=== PATIENT | male | born 1945 | race Caucasian/White ===

== ENCOUNTER 2016-11-09 03:00 | Emergency (ER) | payer OTHER ==
--- NOTE | ~2016-11-09 | US113 ---
[facility] A Service of [facility] RADIOLOGY TEXT RESULTS PATIENT: BASIL MATTHEW LOCATION: [facility] : 43 UNIT #: [id number] AGE: [address]: Miguel Wiseman MD SEX: M ORDER DR: [id number] [facility] [address] [place], [place] [address] [id number] E MR#: [id number] Acc #: [id number] NAME: BASIL MATTHEW : 1945 SEX: M STUDY DATE/TIME: 11/09/2016 2:24 UNIT: [facility] ROOM: STUDY DESCRIPTION: US Scrotal Duplex Complete Attending Physician: Miguel Wiseman M.D. Ordering Physician: Miguel Wiseman M.D. Primary Care Physician: Primary Care Physician No MEDICAL IMAGING REPORT This report is preliminary unless electronic signature is present EXAM Bilateral scrotal ultrasound with Doppler imaging 11/09/2016 HISTORY 71-year-old male with scrotal pain for 4 days. No trauma. COMPARISON None. FINDINGS The right testicle measures 2.4 x 2.0 x 4.1 cm. The left testicle measures 3.0 x 2.5 x 3.7 cm. Both testicles demonstrate normal homogeneous echotexture without mass lesion. Both testicles demonstrate normal color and spectral Doppler flow. A small right epididymal head cyst or spermatocele measures 4 x 9 x 3 mm. Small left epididymal head cyst or spermatocele measures 1.4 x 0.5 x 0.4 cm. No epididymal thickening or inflammatory change is identified. There is a small left scrotal varicocele. No gross right or left scrotal hydroceles. IMPRESSION 1. Normal sonographic appearance of each testicle. No testicular mass. Normal flow to each testicle. 2. Small left greater than right bilateral epididymal cysts or spermatoceles. 3. Left scrotal varicocele. 4. No hydrocele. Dictated by... Britney Jones M.D. [facility] A Service of [facility] RADIOLOGY TEXT RESULTS PATIENT: BASIL MATTHEW LOCATION: [facility] : 43 UNIT #: [id number] AGE: [address]: Miguel Wiseman MD SEX: M ORDER DR: THIS IS AN ELECTRONICALLY VERIFIED REPORT Britney Jones M.D. at 11/13/2016 8:37 AM ANASTASIA/lorie TD: 11/09/2016 10:25 JOB #: [id number] MEDICAL IMAGING REPORT Page 1 of 1 COPY
--- NOTE | ~2016-11-09 | CT4 ---
[facility] A Service of [facility] RADIOLOGY TEXT RESULTS PATIENT: BASIL MATTHEW LOCATION: [facility] : 44 UNIT #: [id number] AGE: [address]: Miguel Wiseman MD SEX: M ORDER DR: [id number] [facility] [address] [place], [place] [address] [id number] E MR#: [id number] Acc #: [id number] NAME: BASIL MATTHEW : 1945 SEX: M STUDY DATE/TIME: 11/09/2016 5:06 UNIT: [facility] ROOM: STUDY DESCRIPTION: CT Abd and Pelv Wo Cont Attending Physician: Miguel Wiseman M.D. Ordering Physician: Miguel Wiseman M.D. Primary Care Physician: No Primary Care Physician MEDICAL IMAGING REPORT This report is preliminary unless electronic signature is present EXAM CT abdomen and pelvis without contrast. DATE 11/09/2016 at 0506 HISTORY 71-year-old male with intermittent testicular pain for 4 days. COMPARISON Bilateral scrotal ultrasound with Doppler imaging 11/09/2016. CT abdomen and pelvis about contrast 05/18/2016. PROCEDURE 3 mm noncontrasted axial images through the abdomen and pelvis. Enteric contrast was not administered. Sagittal and coronal reformatted images were obtained. This CT exam was performed with one or more of the following radiation dose reduction techniques: automatic exposure control, adjustment of mA and/or kV according to patient size, and iterative reconstruction. FINDINGS Lung bases are free of consolidation. Heart size is within normal limits. Cholecystectomy. Noncontrast appearance of the liver, spleen, pancreas, adrenals and kidneys are within normal limits. No urinary tract stone or hydronephrosis. Unopacified bowel within normal limits. Normal appendix. PELVIS FINDINGS: Features of right inguinal hernia repair. Deviation of the urinary bladder dome to the right of midline toward this hernia repair site may represent partial bladder adhesion. Prostate and rectum are normal. Sacral stimulator device in place with electrode tip projecting to the right of midline. No pelvic abscess is seen. Small bilateral [facility] A Service of [facility] RADIOLOGY TEXT RESULTS PATIENT: BASIL MATTHEW LOCATION: [facility] : 43 UNIT #: [id number] AGE: [address]: Miguel Wiseman MD SEX: M ORDER DR: pelvic phleboliths. Degenerative changes of the lumbar spine. Chronic mild compression deformities of T10 and T12. IMPRESSION 1. No acute findings in the abdomen or pelvis. 2. No urinary tract stone or hydronephrosis. 3. Chronic T10 and T12 compression deformities. 4. Sacral stimulator device in place. 5. Cholecystectomy. 6. Suspected partial adhesion of the urinary bladder dome to site of previous right inguinal hernia repair. 7. The appendix is normal. Dictated by... Britney Jones M.D. THIS IS AN ELECTRONICALLY VERIFIED REPORT Britney Jones M.D. at 11/13/2016 8:37 AM ANASTASIA/esteban TD: 11/09/2016 10:54 JOB #: [id number] MEDICAL IMAGING REPORT Page 1 of 1 COPY
[~2016-11-09 03:00] MED LIST: ACETAMINOPHEN PO; ARTIFICIAL TEAR15 M3 TP; ATIVAN PO; CAPSICUM OLEORE TP; CARAFATE1 G PO; CENTRAL VITE PO; CERTAGEN PO; CYMBALTA PO; DULOXETINE HCL60 MG PO; EYE VITAMIN PO; FENTANYL1 PATCH .7 TOP; FUROSEMIDE40 MG PO; KEPPRA500 MG PO; LEVAQUIN PO; LEVOTHROID88 MCG PO; LEVOXYL88 MC1 PO; LYRICA PO; MEDI-MECLIZINE25 M1 PO; MELOXICAM15 MG PO; METHADONE; METHADONE HCL10 MG PO; METROGEL 1% KIT1 EA TP; METROGEL60 GM TOP; MINIPRESS PO; MIRALAX255 GM PO; MULTIVITAMIN1 UDCAP PO; NAMENDA10 MG PO; PRESERVISION SO1 CAP PO; RANITIDINE HCL150 M1 PO; REGLAN PO; RELPAX40 MG PO; RITE-AID PHARMACY; SERTRALINE HCL100 M1 PO; SERTRALINE HCL100 MG PO; SIMVASTATIN10 MG PO; SYNTHROID0.1 MG PO; SYNTHROID88 MCG PO; TRAMADOL HCL50 M1 PO; TRAMADOL HCL50 M2 PO; VESICARE PO; ZANTAC150 M1 PO; ZOLOFT PO; ZOLOFT100 MG PO; [UNRECOGNIZED DRUG - REMARK]
[2016-11-09 03:28] LABS: BASOPHIL% 0.6 % (0-2.5); DIFF IND YES; EOSINOPHIL# 0.1 X10e3 (0-0.7); EOSINOPHIL% 1.8 % (0.0-7.0); HEMATOCRIT 42.1 % (38.0-50.0); HEMOGLOBIN 13.7 gm/dL (13.0-16.0); LYMPHOCYTE# 4.1 X10e3 (1.0-3.5); LYMPHOCYTE% 50.6 % (17.0-45.0); MEAN CELL VOLUME 84.6 FL (83-96); MEAN CORPUSCULAR HEMOGLOBIN 27.6 PG (28-34); MEAN CORPUSCULAR HGB CONC 32.6 g/dL (30-36); MONOCYTE# 0.8 X10e3 (0-1.0); PLATELET COUNT 216 X10e3 (140-420); RED BLOOD COUNT 4.98 X10e (3.90-5.60); RED CELL DISTRIBUTION WIDTH 15.2 % (11.0-15.5)
[2016-11-09 03:46] LABS: ALKALINE PHOSPHATASE 93 U/L (32-92); ALT (SGPT) 21 U/L (10-40); AST (SGOT) 15 U/L (10-42); BLOOD UREA NITROGEN 13 mg/dL (9-23); BUN/CREATININE RATIO 14.44; CALCIUM SERUM 9.5 mg/dL (8.4-10.2); CARBON DIOXIDE 30 mmol/L (22-31); CHLORIDE 103 mmol/L (100-111); CREATININE SERUM 0.9 mg/dL (0.6-1.4); GLOM FILT RATE Estimated ABOVE60 mL/min (>60); GLUCOSE FASTING 102 mg/dL (70-110); POTASSIUM 4.3 mmol/L (3.5-5.1); PROTEIN TOTAL SERUM 7.1 g/dL (6.0-8.3); SODIUM 140 mmol/L (135-145)
[2016-11-09 03:56] LABS: ANISOCYTOSIS SL; HYPERSEGMENTED POLYS PRESENT; PLATELET ESTIMATE NORMAL (NORMAL)
[2016-11-09 03:57] LABS: POIKILOCYTOSIS SL; TEAR DROP CELLS PRESENT
[2016-11-09 04:25] LABS: URINE SOURCE CLEAN CATCH
[2016-11-09 04:28] LABS: URINE APPEARANCE CLEAR; URINE BILIRUBIN NEG (NEG); URINE BLOOD 1+ (NEG); URINE COLOR YELLOW; URINE GLUCOSE NEG (NEG); URINE KETONE NEG (NEG); URINE LEUKOCYTE ESTERASE NEG (NEG); URINE NITRATE NEG (NEG); URINE PROTEIN NEG (NEG); URINE SPECIFIC GRAVITY 1.014 (1.003-1.035); URINE UROBILINOGEN 0.2 MG/DL (NEG)
[2016-11-09 04:30] LABS: URINE BACTERIA AUWI NEG (NEGATIVE); URINE SQUAMOUS EPITHELIAL CELL NONE SEEN /[HPF]; UWBCS1 AUWI 0-2 (0-5)
[2016-11-09 04:32] LABS: CULTURE INDICATED? NO
== END 2016-11-09 05:55 | disposition home or self-care (01) ==
LOC: CED 03:00
PROVIDERS: Emergency Medicine
DX: N50.82 Scrotal pain (principal); F41.9 Anxiety disorder, unspecified; Z88.5 Allergy status to narcotic agent; F43.10 Post-traumatic stress disorder, unspecified
CPT/HCPCS: 36415; 74176; 80053; 81003; 85025; 93975; 96374; 96375; 99284; J2060; J2270